=== PATIENT | male | born 1965 | race Caucasian/White ===

== ENCOUNTER 2016-12-27 15:36 | Emergency (ER) | payer BC ==
--- NOTE | 2017-01-22 21:25 | ER ---
ADMIT: 12/27/2016 RM/LOC: [place] [facility] [place]#: [id number] [place], [place] [id number] DUY CHUNG [address] [place] [address] Emergency Room Report SEX: M AGE: 51 : 1965 DATE: 12/27/2016 He comes to the emergency department with complaints of severe epigastric abdominal pain sudden onset, sharp and crampy. He had just eaten beans and one other item prior to the onset. See T-sheet for history and physical. CT scan of the abdomen was unremarkable, seen gallstones. Ultrasound was normal except for gallstones. CBC was minimally elevated at 14. Electrolytes were normal. The patient is diagnosed with abdominal pain. Instructed to follow up with primary doctor this week and inquire about a HIDA scan. DIAGNOSIS: Abdominal pain. Gume Jefferson MD/ pamella JOB #: [id number] CC: Jaspreet Hyde MD, Attending Physician Teresa Reich MD, Family Physician
== END 2016-12-27 18:34 | disposition home or self-care (01) ==
LOC: ER 15:36
DX: R10.13 Epigastric pain (principal)